=== PATIENT | female | born 1990 | race Caucasian/White ===

== ENCOUNTER → 2017-08-15 16:43 | Outpatient (CLI) | payer OTHER, SELFPAY ==
[2017-08-15 17:19] LABS: Basophils # 0.1 K/mm3 (0-0.2); Basophils % 0.5 % (0.1-2.0); Eosinophils % 0.1 % (0.1-12.0); Hematocrit 36.2 % (37.0-47.0); Hemoglobin 11.9 g/dL (12.2-16.2); Lymphocytes # 1.6 K/mm3 (0.7-4.5); Lymphocytes % 18.4 K/mm3 (10-50); Mean Corpuscular HGB Conc 32.9 g/dL (31.8-35.4); Mean Corpuscular Hemoglobin 30.3 pg (27.0-31.2); Mean Platelet Volume 8.9 fl (7.4-10.4); Monocytes # 0.5 K/mm3 (0.1-1.0); Monocytes % 5.2 % (1.7-9.3); Neutrophils # 6.7 K/mm3 (1.8-7.8); Neutrophils % 75.8 % (37.0-80.0); Platelet Count 215 K/mm3 (142-424); Red Blood Count 3.94 M/mm3 (4.20-5.40); Red Cell Distribution Width 13.2 % (11.5-17.5); White Blood Count 8.8 K/mm3 (4.8-10.8)
[2017-08-15 20:25] LABS: Amphetamine/Metha Screen,Urine Negative ng/mL (<1000); Barbiturates Screen,Urine Negative ng/mL (<200); Benzodiazepines Screen,Urine Negative ng/mL (200); Cannabinoid Screen,Urine Negative ng/mL (<50); Cocaine Screen,Urine Negative ng/g (<300); Methadone Screen,Urine Negative ng/mL (<300); Opiate Screen,Urine Negative ng/mL (<300); Phencyclidine Screen,Urine Negative ng/mL (<25)
[2017-08-17 13:20] LABS: HIV Screen 4th Generation wRfx Non Reactive (Non Reactive); Hepatitis B Surface Antigen Negative (Negative); Rubella Antibodies, IgG 7.34 index (Immune >0.99)
== END ==
PROVIDERS: Family Provider Pediatrics; PCP Obstetrics & Gynecology; Visit Provider Obstetrics & Gynecology
DX: Z36.89 Encounter for other specified antenatal screening (principal); N94.89 Other specified conditions associated with female genital organs and menstrual cycle; Z34.90 Encounter for supervision of normal pregnancy, unspecified, unspecified trimester; Z04.8 Encounter for examination and observation for other specified reasons
CPT/HCPCS: 36415; 80305; 85025; 86703; 86762; 86850; 87340; G0432

== ENCOUNTER 2018-12-06 16:39 | Emergency (ER) | payer BC, SELFPAY ==
--- NOTE | 2018-12-06 16:57 | XR_ITS ---
XR knee LT 3V HISTORY: ITS.REASON: pain ORDERING PHYSICIAN: Lili Groves APRN PATIENT AGE: 28 years COMPARISON: None FINDINGS: No fracture or dislocation. No lytic or blastic change. Normal mineralization. No significant arthritic changes evident. No other significant findings IMPRESSION: Negative Knee
[2018-12-06 16:58] VITALS: BP 131/78; PULSE 91; RESP 20; TEMP 36.8; O2SAT 99; BMI 77.0
--- NOTE | 2018-12-06 17:34 | HMH.EDUTC ---
[facility] [place] Clinical Impression: Knee pain, acute Qualifiers: Laterality: left Qualified Code(s): M25.562 - Pain in left knee Disposition: Home, Self-Care Condition on Discharge: Good Instructions: How To Perform RICE (Rest, Ice, Compress, Elevate), DI for Knee Pain, How to Use Crutches, How to Use a Knee Immobilizer Additional Instructions: *RICE, Rest the extremity, Ice 15-20 minutes 3-4 times daily, Compress- wear the jose martin wrap as discussed as much as possible to help reduce swelling and pain, Elevate the extremity when at rest *Jose Martin wrap/ knee is for support and help control swelling, use it except in the shower. Be sure that is not to tight but not to loose either *Elevate when resting *Ibuprofen every 6-8 hours as needed for pain an inflammation. If need something more can take Tylenol in between doses of Ibuprofen to help Immediately follow up with your family doctor for new or worsening of symptoms, or no noticeable improvement over the next 3-5 days Follow up with Orthopedics for further evaluation and any worsening of knee pain Return if needed Straight to ER if any life threatening symptoms Prescriptions: Ibuprofen [Ibuprofen 800mg Tablet] 800 mg PO Q8HP PRN #15 tab PRN Reason: Moderate Pain Referrals: Deloris Garcia APRN [Primary Care Provider] - As needed Sharon Calvo MD [Physician] - Joseph Nolasco MD [Staff Physician] - Forms: Work/School Release Medical Decision Making - Dewey Inquiry Pt receiving controlled substance: No Dewey was queried for this patient: No Vital Signs: 12/06/18 16:58 Temperature 98.3 F Temperature Source Tympanic Pulse Rate [Radial] 91 H Respiratory Rate 20 Blood Pressure [Right Arm] 131/78 Blood Pressure Mean [Right Arm] 95 02 Sat by Pulse Oximetry 99 Oxygen Delivery Method Room Air Orders (Tests/Meds): ORDERS Category Date Time Status XR knee LT 3V Stat Exams 12/06/18 16:57 Taken - Radiology Data #1 Image(s): Knee Image Reviewed: Yes I have reviewed radiologist's interpretation Preliminary Findings: No Fracture Seen IMPRESSION: Negative Knee [facility] [place] - General Stated complaint: Left knee pain Time Seen by Provider: 12/06/18 17:42 Mode of Arrival: Ambulatory Source of Information: Patient Limitations: No Limitations Description of Symptoms (Recalled from Triage Doc. 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 denies new injury - Related Data Home Medications Medication Instructions Recorded Confirmed buspirone 5 mg tablet 5 mg PO QHS tab 08/15/17 levothyroxine 75 mcg capsule 150 mcg PO DAILY cap 08/15/17 1 tab PO DAILY tab 08/15/17 vitamin,calcium,enfdyhvg-vptr-vrzag acid tablet Previous Rx's Medication Instructions Recorded Ibuprofen [Ibuprofen 800mg 800 mg PO Q8HP PRN #15 tab 12/06/18 Tablet] Allergies Allergy/AdvReac Type Severity Reaction Status Date / Time No Known Allergies Allergy Verified 09/20/17 14:46 - Worker's Comp Is this a Worker's Comp case?: No Is this an H Worker's Comp?: No Is this a Mildred Worker's Comp?: No [facility] History - Hepatitis A Screen Drug use history?: No High risk sexual behaviors?: No History of sexually transmitted infection?: No Currently employed?: No Childcare worker?: No Do you have indoor plumbing?: Yes
--- NOTE | 2018-12-06 17:42 | ED_ITS ---
[facility] [place] Dis[place] Clinical Impression: Knee pain, acute Qualifiers: Laterality: left Qualified Code(s): M25.562 - Pain in left knee Disposition: Home, Self-Care Condition on Discharge: Good Instructions: How To Perform RICE (Rest, Ice, Compress, Elevate), DI for Knee Pain, How to Use Crutches, How to Use a Knee Immobilizer Additional Instructions: *RICE, Rest the extremity, Ice 15-20 minutes 3-4 times daily, Compress- wear the jose martin wrap as discussed as much as possible to help reduce swelling and pain, Elevate the extremity when at rest *Jose Martin wrap/ knee is for support and help control swelling, use it except in the shower. Be sure that is not to tight but not to loose either *Elevate when resting *Ibuprofen every 6-8 hours as needed for pain an inflammation. If need something more can take Tylenol in between doses of Ibuprofen to help Immediately follow up with your family doctor for new or worsening of symptoms, or no noticeable improvement over the next 3-5 days Follow up with Orthopedics for further evaluation and any worsening of knee pain Return if needed Straight to ER if any life threatening symptoms Prescriptions: Ibuprofen [Ibuprofen 800mg Tablet] 800 mg PO Q8HP PRN #15 tab PRN Reason: Moderate Pain Referrals: Deloris Garcia APRN [Primary Care Provider] - As needed Sharon Calvo MD [Physician] - Joseph Nolasco MD [Staff Physician] - Forms: Work/School Release Medical Decision Making - Dewey Inquiry Pt receiving controlled substance: No Dewey was queried for this patient: No Vital Signs: 12/06/18 16:58 Temperature 98.3 F Temperature Source Tympanic Pulse Rate [Radial] 91 H Respiratory Rate 20 Blood Pressure [Right Arm] 131/78 Blood Pressure Mean [Right Arm] 95 02 Sat by Pulse Oximetry 99 Oxygen Delivery Method Room Air Orders (Tests/Meds): ORDERS Category Date Time Status XR knee LT 3V Stat Exams 12/06/18 16:57 Taken - Radiology Data #1 Image(s): Knee Image Reviewed: Yes I have reviewed radiologist's interpretation Preliminary Findings: No Fracture Seen IMPRESSION: Negative Knee [facility] [place] HPI - General Stated complaint: Left knee pain Time Seen by Provider: 12/06/18 17:42 Mode of Arrival: Ambulatory Source of Information: Patient Limitations: No Limitations Description of Symptoms (Recalled from Triage Doc. 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 denies new injury - Related Data Home Medications Medication Instructions Recorded Confirmed buspirone 5 mg tablet 5 mg PO QHS tab 08/15/17 levothyroxine 75 mcg capsule 150 mcg PO DAILY cap 08/15/17 1 tab PO DAILY tab 08/15/17 vitamin,calcium,minera
[2018-12-06 18:15] VITALS: BP 131/78; PULSE 91; RESP 20; TEMP 36.8; O2SAT 99
== END 2018-12-06 18:17 | disposition home or self-care (01) ==
PROVIDERS: Emergency Provider Nurse Practitioner; PCP Nurse Practitioner Family
DX: M25.562 Pain in left knee (principal); E05.00 Thyrotoxicosis with diffuse goiter without thyrotoxic crisis or storm
CPT/HCPCS: 29505; 73562; 99202

== ENCOUNTER → 2018-12-12 16:42 | Outpatient (CLI) | payer BC, SELFPAY ==
[2018-12-12 18:18] LABS: Free T4 (Free Thyroxine) 0.76 ng/dl (0.76-1.46); Thyroid Stimulating Hormone 51.75 uIU/ml (0.358-3.740)
== END ==
PROVIDERS: Visit Provider Nurse Practitioner Family
DX: R94.6 Abnormal results of thyroid function studies (principal)
CPT/HCPCS: 36415; 84439; 84443

== ENCOUNTER 2019-01-04 17:00 | Outpatient (RCR) | payer BC, SELFPAY ==
--- NOTE | 2018-12-26 17:25 | HMH.PTOPEV ---
PT Outpatient Evaluation Rehab PT Outpatient Evaluation Start: 12/26/18 17:14 Freq: Status: Active Protocol: Document 12/26/18 17:14 NEO (Rec: 12/26/18 17:24 SURINDERPAGEJOAQUIM [id number]) Electronically Signed By Farooq Whatley, PT 12/26/18 17:14 Outpatient Therapy Subjective History Subjective History Patient is a 28 year old female presenting to outpatient PT with reports of B shoulder pain of insidious onset that has progressively gotten worse since 07/2018. No recent diagnostics to report. Pt reports overall decreased symptoms since starting daily ibuprofen. Comorbidities include hypothyroidism, anxiety and depression. Chief Complaint Pain Symptom Type Ache Symptoms Relieved By Rest/Positioning,OTC Meds Symptoms Aggravated By Physical Activity,Lifting Prior Functional Limitations None Current Functional Limitations Reaching,Lifting,Housework, Sleeping,Recreation Activity Symptom Description Constant but Variable Level of pain today (0-10) 2 Pain scale - at its best (0-10) 1 Pain scale - at its worst (0-10) 6 Shoulder/Elbow Eval Shoulder Objective Measurements Palpation Tenderness tenderness shoulder exam standard bilateral tenderness over the bicipital tendon bilateral shoulder exam standard tenderness over the SA bursa shoulder bilateral exam standard Shoulder Palpation Findings Tenderness Shoulder Palpation Overall Comment 2/4 Posture Shoulder Posture Sitting Position (L) Forward,(R) Forward Shoulder Posture Standing Position (L) Forward,(R) Forward Scapula Posture Sitting Position (L) Protracted,(R) Protracted Scapular Posture Standing Position (L) Protracted,(R) Protracted Flexibilty Deficits Latissmus Dorsi Muscle Length (R) Mild Tightness,(L) Mild Tightness Pectoralis Minor Muscle Length (R) Moderate Tightness,(L) Moderate Tightness Levaetor Scapulae Muscle Length (R) Mild Tightness,(L) Mild Tightness Shoulder ROM Bilateral pain with active ROM shoulder exam bilateral standard full ROM shoulder exam standard bilateral Shoulder MMT Shoulder Flexion Strength Grade 4 Good Shoulder External Rotation Strength 4- Good- Grade Shoulder Special Tests impingement sign present shoulder exam bilateral standard Shoulder Drop Arm Test Negative Left,Negative Right Shoulder Cr
== END 2019-01-04 17:05 | disposition home or self-care (01) ==
LOC: PT 17:00
PROVIDERS: Visit Provider Nurse Practitioner Family
DX: M25.511 Pain in right shoulder (principal)
CPT/HCPCS: 97163

== ENCOUNTER → 2019-01-19 13:33 | Outpatient (CLI) | payer BC, SELFPAY ==
--- NOTE | 2019-01-19 13:48 | XR_ITS ---
XR knee LT 4V HISTORY: ITS.REASON: knee pain ORDERING PHYSICIAN: Sharon Calvo MD PATIENT AGE: 28 years COMPARISON: None FINDINGS: No fracture or dislocation. No lytic or blastic change. Normal mineralization. No significant arthritic changes evident. No other significant findings IMPRESSION: Negative Knee
== END ==
PROVIDERS: PCP Nurse Practitioner Family; Visit Provider Orthopaedic Surgery
DX: M25.562 Pain in left knee (principal)
CPT/HCPCS: 73564

== ENCOUNTER → 2019-01-26 15:51 | Outpatient (CLI) | payer BC, SELFPAY ==
--- NOTE | 2019-01-26 16:01 | MR_ITS ---
MR knee LT wo con HISTORY: Left knee pain, posterior knee pain, injury with pain ITS.REASON: PCL injury ORDERING PHYSICIAN: Sharon Calvo MD PATIENT AGE: 28 years Comparison: 01/19/2019 TECHNIQUE: Standard multiplanar multiecho sequences are performed without contrast. FINDINGS: The cruciate ligaments appear intact. There is some thinning of the fibers of the anterior cruciate ligament which could represent sprain or old injury. The posterior cruciate ligament has an unremarkable appearance. The collateral ligaments, patellar tendon, and quadriceps tendon have an unremarkable appearance. Patellar cartilage is well preserved. No meniscal tear.. No fracture or dislocation. No bone bruise. A small knee joint effusion. IMPRESSION: 1. There is mild thinning of the ACL nonspecific but could be related to sprain or partial tear 2. Posterior cruciate ligament and menisci have an unremarkable appearance. 3. Small knee joint effusion
== END ==
PROVIDERS: PCP Nurse Practitioner Family; Visit Provider Orthopaedic Surgery
DX: M25.562 Pain in left knee (principal); G89.29 Other chronic pain
CPT/HCPCS: 73721

== ENCOUNTER → 2019-08-23 17:01 | Outpatient (CLI) | payer BC, SELFPAY ==
[2019-08-23 19:05] LABS: Free T4 (Free Thyroxine) 0.71 ng/dl (0.78-2.19)
[2019-08-25 20:43] LABS: Prolactin 9.8 ng/mL (4.8-23.3)
== END ==
PROVIDERS: Visit Provider Nurse Practitioner Family
DX: E03.9 Hypothyroidism, unspecified (principal)
CPT/HCPCS: 36415; 84146; 84439; 84443

== ENCOUNTER → 2020-08-27 14:45 | Outpatient (CLI) | payer BC, SELFPAY ==
[2020-08-27 16:02] LABS: Triiodothryronine (T3) Uptake 29 % (23.5-40.5)
[2020-08-27 16:03] LABS: Free Thyroxine Index 3.2 ug/dL (5.93-13.13); T4 (Thyroxine) 11.2 ug/dl (5.53-11.0)
[2020-08-27 16:17] LABS: Thyroid Stimulating Hormone 4.41 uIU/mL (0.465-4.68)
== END ==
PROVIDERS: Visit Provider Internal Medicine Adolescent Medicine
DX: R94.6 Abnormal results of thyroid function studies (principal)
CPT/HCPCS: 36415; 84436; 84443; 84479

== ENCOUNTER → 2021-07-08 09:03 | Outpatient (CLI) | payer BC, SELFPAY | PROVIDERS: Visit Provider Nurse Practitioner | DX: U07.1 COVID-19 (principal) | CPT/HCPCS: C9803; U0003; U0005 ==

== ENCOUNTER 2022-10-11 20:12 | Emergency (ER) | payer BC, SELFPAY ==
[2022-10-11 20:16] VITALS: BP 124/76; O2SAT 98
[2022-10-11 20:18] VITALS: BP 124/76; PULSE 94; RESP 17; TEMP 36.7; O2SAT 98; BMI 33.0
--- NOTE | 2022-10-11 20:26 | XR_ITS ---
PROCEDURE INFORMATION: Exam: XR Right Hip Exam date and time: 10/11/2022 8:36 PM Age: 32 years old Clinical indication: Patient HX: Right hip pain, difficulty to bear weight on leg. Started tonight after jumping during soccer practice; Additional info: Back pain TECHNIQUE: Imaging protocol: Radiologic exam of the right hip. Views: 2 or 3 views hip with pelvis when performed. COMPARISON: No relevant prior studies available. FINDINGS: Bones/joints: No acute pelvic fracture. Normal alignment at the hips, no dislocation. Bilateral sacroiliitis with periarticular spurs greater on the right. There is prominent periarticular sclerosis, right greater than left, predominantly in the iliac bones suggesting osteitis condensans illi. No focal lytic lesions. No significant arthritic deformities at the hips. Soft tissues: No acute findings in the soft tissues. IMPRESSION: 1. Sacroiliitis with osteitis condensans ilii, greater on the right. 2. No acute fracture or dislocation. 3. Unremarkable appearance of the right hip joint.
--- NOTE | 2022-10-11 20:26 | XR_ITS ---
PROCEDURE INFORMATION: Exam: XR Lumbosacral Spine Exam date and time: 10/11/2022 8:38 PM Age: 32 years old Clinical indication: Low back pain; Patient HX: Pain started tonight after jumping during soccer practice; Additional info: Right hip pain/possible sciatica TECHNIQUE: Imaging protocol: Radiologic exam of the lumbosacral spine. Views: 2 or 3 views. COMPARISON: CR XR HIP RT 2-3V W/PELVIS 10/11/2022 8:36 PM FINDINGS: Bones/joints: A normal count of 5 non rib-bearing lumbar type vertebrae will be assumed, with a transitional T12 segment with hypoplastic ribs; no previous thoracic spine imaging studies are available for comparison, for accurate numbering. There is grade 1 anterolisthesis at the L5-S1 level, appearance suspicious for underlying pars defects, which would be more accurately evaluated with oblique views. Alignment is otherwise within normal limits. There is straightening of lumbar lordosis suggesting muscle spasm. Disc spaces are well preserved. No significant spondylosis. There is prominent bilateral sacroiliitis or osteitis condensans ilii, with prominent periarticular sclerosis predominantly in the iliac bones, greater on the right. Small bilateral inferior sacroiliac spurs. Soft tissues: No acute findings in the soft tissues. IMPRESSION: 1. Grade 1 anterolisthesis L5-S1, with likely underlying spondylolysis, suboptimally evaluated without oblique views. 2. Lumbar muscle spasm. 3. Bilateral sacroiliitis, and bilateral osteitis condensans ilii, greater on the right.
--- NOTE | 2022-10-11 21:21 | HMH.EDGENADL ---
Discharge Plan Disposition Patient Disposition: Home, Self-Care Prescriptions Prescriptions: New prednisone [prednisone] 20 mg tablet 20 mg PO BID Qty: 10 0RF No Action levothyroxine 175 mcg tablet PO Label Comments: TAKE 1 TABLET BY MOUTH ONCE DAILY buspirone 5 mg tablet 5 mg PO BID Qty: 60 2RF lorazepam [Ativan] 0.5 mg tablet 0.5 mg PO BID PRN (Reason: anxiety) Qty: 30 0RF dextroamphetamine-amphetamine [Adderall] 10 mg tablet 10 mg PO BID Qty: 60 0RF Rx Instructions: administer doses at least 4-6 hours apart venlafaxine 37.5 mg capsule,extended release 24hr See Rx Instructions .ROUTE .COMPLEX Qty: 90 0RF Dose Instruction: Take 1 capsule by mouth once daily Rx Instructions: Take 1 capsule by mouth once daily Mydayis 12.5 mg capsule, ER triphasic 24 hr 12.5 mg PO DAILY Qty: 30 0RF Wegovy 1.7 mg/0.75 mL pen injector 1.7 mg SQ WEEKLY Qty: 3 0RF Rx Instructions: administer weeks 13 through 16 of therapy Referrals Follow up/Referrals: Chioma Zuniga PA [Primary Care Provider] - See instructions Clinical Impressions Clinical Impression: Sacroiliitis, Osteitis condensans ilii Instructions Patient Instructions: Sacroiliac Joint Pain Discharge ED Provider: Kev (ED)Alex General Adult HPI General Chief complaint: PAIN Stated complaint: Right hip pain Time Seen by Provider: 10/11/22 20:30 Mode of Arrival: Family Vehicle Source of Information: Patient, Spouse and Medical Record Limitations: No Limitations Description of Symptoms (Recalled from ER Triage Doc. 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 NO DEFINITIVE INJURY, HOWEVER SHE SAID THAT IS THE LAST THING SHE RECALLS ACTIVITY-ARENAS THAT MAY HAVE OCCURRED. VSS. AFEBRILE. NO URINARY ISSUES. NO DIARRHEA. NO CONSTIPATION. LMP UNK-HAS NEXPLANON. History of Present Illness HPI narrative: acute rt hip pain after jumping tonight - worse with wt bearing and mov Onset (ago): hour(s) Location: lower extremity Severity: moderate Associated symptoms: denies other symptoms Related Data Home Medications Medication Instructions Recorded Confirmed levothyroxine 175 mcg tablet PO 08/05/19 07/05/22 Previous Rx's Medication Instructions Recorded buspirone 5 mg tablet 5 mg PO BID #60 tabs 05/18/22 lorazepam 0.5 mg tablet (Ativan) 0.5 mg PO BID PRN anxiety #30 tabs 05/18/22 dextroamphetamine-amphetamine 10 10 mg PO BID #60 tabs 08/10/22 mg tablet (Adderall) venlafaxine 37.5 mg See Rx Instructions .Route 09/15/22 capsule,extended release 24 hr .COMPLEX #90 caps dextroamphetamine-amphetamine ER 12.5 mg PO DAILY #30 ea 09/24/22 12.5 mg capsule, 3 bead, ext rel 24hr (Mydayis) semaglutide (weight loss) 1.7 1.7 mg (0.75 mL) SQ WEEKLY #3 mL 10/04/22 mg/0.75 mL subcutaneous pen injector (Wegovy) prednisone 20 mg tablet 20 mg PO BID #10 tabs 10/11/22 Allergies Allergy/AdvReac Type Severity Reaction Status Date / Time No Known Allergies Allergy Verified 05/18/22 13:22 [facility] Disclaimer: The information contained in this section may have been updated after the patient was seen, as this information can be updated by other users. Medical History (Updated 10/11/22 @ 21:55 by Alex Angulo (ED)MD) Anxiety Depression Surgical History delivery delivered H/O radioactive iodine thyroid ablation Social History Smoking Status: Never smoker second hand exposure: No alcohol intake: never substance use type: denies use current occupational status: employed Travel in the last 8 weeks: None household members: family housing: apartment ROS Obtained: Yes All systems reviewed & no additional complaints except as docu
[2022-10-11 21:57] VITALS: BP 119/81; PULSE 90; RESP 16; TEMP 36.7; O2SAT 98
== END 2022-10-11 21:59 | disposition home or self-care (01) ==
PROVIDERS: Emergency Provider Emergency Medicine; PCP Physician Assistant
DX: M46.1 Sacroiliitis, not elsewhere classified (principal); M85.39 Osteitis condensans, multiple sites
CPT/HCPCS: 72100; 73502; 99283

== ENCOUNTER → 2022-10-27 13:28 | Outpatient (CLI) | payer BC, SELFPAY ==
--- NOTE | 2022-10-27 13:35 | MR_ITS ---
FINAL REPORT TECHNIQUE: Multiplanar MR without contrast CLINICAL HISTORY: abnormal lumbar xray FINDINGS: Sagittal images show normal vertebral height. There is minimal anterolisthesis of L5 on S1 with probable pars defects of L5. Marrow signal pattern is unremarkable. L1-2: Unremarkable L2-3: Unremarkable L3-4: Moderate right paracentral disc protrusion compressing the right L4 nerve root and right side of the thecal sac. L4-5: Small midline disc protrusion and annular tear. No nerve root compression. L5-S1: Minimal annular disc bulge. Tiny central annular tear. IMPRESSION: Significant right sided disc protrusion at L3-4 with compression of the neural structures. Minimal anterolisthesis of L5 on S1, likely related to underlying L5 pars defect. Reviewed, Interpreted and Dictated by Darek Santana MD Transcribed by Chyna Mcclelland Authenticated and [facility]
--- NOTE | 2022-10-27 13:35 | MR_ITS ---
FINAL REPORT TECHNIQUE: Multiplanar MR without contrast CLINICAL HISTORY: right hip pain AFTER JUMPING FINDINGS: The marrow signal pattern is normal. There is no evidence of avascular necrosis. No osteochondral defects are present. Physiologic joint effusion is seen. Labrum shows a normal MR appearance. There is very minimal right-sided trochanteric bursitis. Incidental note is made of left-sided trochanteric bursitis, worse than the right. IMPRESSION: Minimal trochanteric bursitis. Reviewed, Interpreted and Dictated by Darek Santana MD Transcribed by Chyna Mcclelland Authenticated and [facility]
== END ==
PROVIDERS: PCP Physician Assistant; Visit Provider Physician Assistant
DX: M54.50 Low back pain, unspecified (principal); M25.551 Pain in right hip
CPT/HCPCS: 72148; 73721; 76376

== ENCOUNTER 2022-12-14 15:00 | Outpatient (RCR) | payer BC, SELFPAY ==
--- NOTE | 2022-11-18 09:46 | HMH.PTOPEV ---
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 Pt reports when she landed she had a muscle spasms from the right side of the low back to the right hip/ groin and was unable to walk/ stand for 1-2 days. Pt denies any numbness/tingling, distal symptoms, or bowel/bladder dysfunction since the injury. Pt reports she went to the ER that night and had xrays which came back negative for fractures. Pt reports she was given an oral steroid and Tylenol which helped with pain . Pt reports a history of chronic low back pain that has hurt since she played soccer in high [employer]. Pt reports she has a flare up of LBP once a month that last about 2 days and she just continues with normal activity until it resolves on its own. Pt reports hip and low back pain have improved since the initial injury but she still has intermittent spasms of the right low back to the right groin area and intermittent sharp twinges of pain in the same location. Pt also reports intermittent localized pain over the right greater trochanter. Pt is unable to identify what activities worsen pain. Pt reports she does have some difficulty lifting her 1 and 4 y/o children and going up stairs
== END 2022-12-14 15:05 | disposition home or self-care (01) ==
LOC: PT 15:00
PROVIDERS: PCP Physician Assistant; Visit Provider Physician Assistant
DX: M70.71 Other bursitis of hip, right hip (principal)
CPT/HCPCS: 97033; 97110; 97112; 97163; 97530

== ENCOUNTER → 2023-01-17 09:45 | Outpatient (CLI) | payer BC, SELFPAY | PROVIDERS: PCP Student in an Organized Health Care Education/Training Program; Visit Provider Student in an Organized Health Care Education/Training Program | DX: N39.0 Urinary tract infection, site not specified (principal); B96.29 Other Escherichia coli [E. coli] as the cause of diseases classified elsewhere | CPT/HCPCS: 87086; 87088; 87186 ==

== ENCOUNTER → 2023-05-30 23:28 | Outpatient (CLI) | payer BC, SELFPAY ==
[2023-05-30 18:32] LABS: Amphetamine/Metha Screen,Urine Positive ng/ml (<1000); Barbiturates Screen,Urine Negative ng/ml (<200)
[2023-05-30 18:33] LABS: Benzodiazepines Screen,Urine Negative ng/ml (<200); Cannabinoid Screen,Urine Negative ng/ml (<50)
[2023-05-30 18:34] LABS: Cocaine Screen,Urine Negative ng/ml (<300)
[2023-05-30 18:35] LABS: Methadone Screen,Urine Negative ng/ml (<300); Opiate Screen,Urine Negative ng/ml (<300)
[2023-05-30 18:36] LABS: Phencyclidine Screen,Urine Negative ng/ml (<25)
== END ==
PROVIDERS: PCP Physician Assistant; Visit Provider Physician Assistant
DX: F90.9 Attention-deficit hyperactivity disorder, unspecified type (principal)
CPT/HCPCS: 80305

== ENCOUNTER 2023-11-16 18:21 | Outpatient (CLI) | payer BC, SELFPAY ==
[2023-11-16 18:41] LABS: Basophils # 0.1 K/mm3 (0-0.2); Basophils % 1.1 % (0.1-2.0); Hematocrit 40.4 % (37.0-47.0); Hemoglobin 13.5 g/dL (12.2-16.2); Lymphocytes # 1.2 K/mm3 (0.7-4.5); Mean Corpuscular HGB Conc 33.3 g/dL (31.8-35.4); Mean Corpuscular Hemoglobin 30.3 pg (27.0-31.2); Mean Corpuscular Volume 91.2 fl (81-99); Mean Platelet Volume 9.7 fl (7.4-10.4); Monocytes # 0.2 K/mm3 (0.1-1.0); Monocytes % 4.4 % (1.7-9.3); Neutrophils # 3.8 K/mm3 (1.8-7.8); Neutrophils % 71.6 % (37.0-80.0); Platelet Count 273 K/mm3 (142-424); Red Blood Count 4.43 M/mm3 (4.20-5.40); Red Cell Distribution Width 14.5 % (11.5-17.5); White Blood Count 5.3 K/mm3 (4.8-10.8)
[2023-11-16 19:02] LABS: Alanine Aminotransferase 38 U/L (12-78); Albumin Level 4.3 g/dl (3.5-5.0); Albumin/Globulin Ratio 1.3 (1.1-1.8); Alkaline Phosphatase 65 U/L (38-126); Anion Gap 15.1 mEq/L (5-15); Aspartate Amino Transferase 38 U/L (14-36); Bilirubin,Total 0.5 mg/dl (0.2-1.3); Blood Urea Nitrogen 10 mg/dl (7-17); Calcium 9.5 mg/dl (8.4-10.2); Carbon Dioxide 25 mmol/L (22.0-30.0); Chloride 101 mmol/L (98-107); Chol/HDL Ratio 5.6 (1-3.5); Cholesterol 224 mg/dl (140-200); Estimated Glomerular Filt Rate 84 ml/min (>60); GFR (African American) 101 ML/MIN (>60); Globulin 3.2 g/dL (1.3-3.2); Glucose 139 mg/dl (74-100); HDL Cholesterol 40 mg/dl (40-60); Potassium 4.1 mmoL/L (3.5-5.1); Sodium 137 mmol/L (136-145); Total Protein,Serum 7.5 g/dl (6.3-8.2); Triglycerides 159 mg/dl (30-150); VLDL Cholesterol 32 mg/dL (0-40)
[2023-11-16 19:13] LABS: Direct LDL Cholesterol 146.69 mg/dL (100-129)
[2023-11-16 19:24] LABS: 25-OH Vitamin D, Total 26.5 ng/mL (30-100)
[2023-11-16 19:26] LABS: T4 (Thyroxine) 10.4 ug/dl (5.53-11.0)
[2023-11-16 19:39] LABS: Thyroid Stimulating Hormone 1.32 uIU/mL (0.465-4.68)
[2023-11-16 20:16] LABS: Vitamin B12 271 pg/mL (239-931)
[2023-11-16 20:19] LABS: Folate 8.52 ng/mL
== END 2023-11-16 23:59 | disposition home or self-care (01) ==
LOC: LAB.DROPOF 18:21
PROVIDERS: PCP Nurse Practitioner Family; Visit Provider Nurse Practitioner Family
DX: E03.9 Hypothyroidism, unspecified (principal); R53.83 Other fatigue; E55.9 Vitamin D deficiency, unspecified; Z79.899 Other long term (current) drug therapy
CPT/HCPCS: 80053; 80061; 82306; 82607; 82746; 84436; 84443; 85025

== ENCOUNTER 2023-12-26 11:31 | Outpatient (CLI) | payer BC, SELFPAY | END 2023-12-26 23:59 | disposition home or self-care (01) | LOC: LAB.DROPOF 12-27 11:32 | PROVIDERS: PCP Student in an Organized Health Care Education/Training Program; Visit Provider Student in an Organized Health Care Education/Training Program | DX: N39.0 Urinary tract infection, site not specified (principal) | CPT/HCPCS: 87086 ==

== ENCOUNTER 2023-12-28 14:59 | Outpatient (CLI) | payer BC, SELFPAY | END 2023-12-28 23:59 | disposition home or self-care (01) | LOC: LAB 15:00 | PROVIDERS: PCP Physician Assistant; Visit Provider Student in an Organized Health Care Education/Training Program | DX: N39.0 Urinary tract infection, site not specified (principal) | CPT/HCPCS: 87086 ==

== ENCOUNTER 2024-01-13 08:46 | Outpatient (CLI) | payer BC, SELFPAY ==
[2024-01-13 17:49] LABS: HCG Qualitative, Serum Negative (Negative)
[2024-01-13 17:50] LABS: Alanine Aminotransferase 27 U/L (12-78); Albumin Level 4.2 g/dl (3.5-5.0); Albumin/Globulin Ratio 1.3 (1.1-1.8); Alkaline Phosphatase 63 U/L (38-126); Anion Gap 11.7 mEq/L (5-15); Aspartate Amino Transferase 29 U/L (14-36); Bilirubin,Total 0.5 mg/dl (0.2-1.3); Blood Urea Nitrogen 9 mg/dl (7-17); Calcium 9.2 mg/dl (8.4-10.2); Carbon Dioxide 23 mmol/L (22.0-30.0); Chloride 106 mmol/L (98-107); Chol/HDL Ratio 4.8 (1-3.5); Cholesterol 216 mg/dl (140-200); Estimated Glomerular Filt Rate 98 ml/min (>60); GFR (African American) 118 ML/MIN (>60); Globulin 3.2 g/dL (1.3-3.2); Glucose 95 mg/dl (74-100); HDL Cholesterol 45 mg/dl (40-60); Potassium 3.7 mmoL/L (3.5-5.1); Sodium 137 mmol/L (136-145); Total Protein,Serum 7.4 g/dl (6.3-8.2); Triglycerides 135 mg/dl (30-150); VLDL Cholesterol 27 mg/dL (0-40)
[2024-01-13 17:57] LABS: Basophils % 0.2 % (0.1-2.0); Eosinophils % 0.1 % (0.1-12.0); Hematocrit 41.2 % (37.0-47.0); Hemoglobin 13.6 g/dL (12.2-16.2); Lymphocytes # 1.5 K/mm3 (0.7-4.5); Lymphocytes % 28.1 % (10-50); Mean Corpuscular HGB Conc 32.9 g/dL (31.8-35.4); Mean Corpuscular Hemoglobin 31.4 pg (27.0-31.2); Mean Corpuscular Volume 95.3 fl (81-99); Mean Platelet Volume 9.5 fl (7.4-10.4); Monocytes # 0.3 K/mm3 (0.1-1.0); Monocytes % 5.7 % (1.7-9.3); Neutrophils # 3.5 K/mm3 (1.8-7.8); Neutrophils % 65.9 % (37.0-80.0); Platelet Count 209 K/mm3 (142-424); Red Blood Count 4.32 M/mm3 (4.20-5.40); Red Cell Distribution Width 14.7 % (11.5-17.5); White Blood Count 5.3 K/mm3 (4.8-10.8)
[2024-01-13 18:01] LABS: Direct LDL Cholesterol 136.26 mg/dL (100-129)
[2024-01-13 18:07] LABS: 25-OH Vitamin D, Total 58.6 ng/mL (30-100)
[2024-01-13 18:10] LABS: Free Thyroxine Index 4.3 ug/dL (5.93-13.13); T4 (Thyroxine) 11.7 ug/dl (5.53-11.0); Triiodothryronine (T3) Uptake 37 % (23.5-40.5)
[2024-01-13 18:24] LABS: Thyroid Stimulating Hormone 0.06 uIU/mL (0.465-4.68)
[2024-01-13 19:13] LABS: Hemoglobin A1C 4.8 % (4.0-6.0)
== END 2024-01-13 23:59 | disposition home or self-care (01) ==
LOC: LAB.DROPOF 01-16 08:46
PROVIDERS: PCP Physician Assistant; Visit Provider Physician Assistant
DX: E03.9 Hypothyroidism, unspecified (principal); R53.83 Other fatigue; Z68.34 Body mass index [BMI] 34.0-34.9, adult; E66.9 Obesity, unspecified
CPT/HCPCS: 80050; 80053; 80061; 82306; 83036; 84436; 84443; 84479; 84703; 85025

== ENCOUNTER 2024-01-28 15:53 | Emergency (ER) | payer BC, SELFPAY ==
[2024-01-28 16:05] VITALS: BP 96/59; PULSE 80; RESP 17; TEMP 36.7; O2SAT 98; BMI 34.4
[2024-01-28 16:24] LABS: UTC Strep Screen (Rapid) Positive (Negative)
--- NOTE | 2024-01-28 16:25 | ED_ITS ---
Discharge Plan Disposition Patient Disposition: Home, Self-Care Condition: Good Prescriptions Prescriptions: New azithromycin 250 mg tablet 250 mg PO DIRECTED Qty: 6 0RF Rx Instructions: Take two (2) tablets on day #1, then one (1) tablet day #2 thru #5 No Action Vraylar 1.5 mg capsule See Rx Instructions .ROUTE .COMPLEX Qty: 90 0RF Dose Instruction: Take 1 capsule by mouth once daily Rx Instructions: Take 1 capsule by mouth once daily venlafaxine 75 mg capsule,extended release 24hr See Rx Instructions .ROUTE .COMPLEX Qty: 90 3RF Dose Instruction: Take 1 capsule by mouth once daily Rx Instructions: Take 1 capsule by mouth once daily lorazepam 0.5 mg tablet 0.5 mg PO BID PRN (Reason: anxiety) Qty: 30 0RF levothyroxine 137 mcg capsule 137 mcg PO DAILY Qty: 30 2RF dextroamphetamine-amphetamine 25 mg capsule, ER triphasic 24 hr 25 mg PO DAILY Patient Comments: 25 mg orally daily Zepbound 12.5 mg/0.5 mL pen injector 12.5 mg SQ WEEKLY Patient Comments: INJECT 1 SYRINGE SUBCUTANEOUSLY ONCE A WEEK Referrals Follow up/Referrals: Chioma Zuniga PA [Primary Care Provider] - See instructions Activity Restrictions/Add. Instructions Additional Instructions/Restrictions: Start antibiotics today be sure to take it as ordered with the full length of time although you should start feeling better in 24-48 hours. Change toothbrush and toothpaste 24-48 hours after starting antibiotics Tylenol or Motrin as needed for fever or pain Encourage fluids, water, Gatorade, Powerade, try cold fluids, popsicles, ice cream will make it feel better You are contagious for 24 hours. Avoid kissing anyone, no eating or drinking after anyone. You are contagious. Follow-up the ER for new or worsening symptoms or no noticeable improvement over the next 24-48 hours. Follow-up with PCP this week. Clinical Impressions Clinical Impression: Strep throat Instructions Patient Instructions: DI for Strep Throat Print Language Print Language: [place] Discharge ED Provider: Moises ([facility])[place] [facility] [place] General Stated complaint: sore throat Mode of Arrival: Ambulatory Source of Information: Patient Limitations: No Limitations Time Seen by Provider: 01/28/24 16:26 Description of Symptoms (Recalled from Triage Doc. by RN): PATIENT C/O SORE THROAT AND COUGH SINCE YESTERDAY EVENING. PATIENT REPORTS EXPOSURE TO STREP HEENT Symptoms (Recalled from RN notes): Yes Resp Symptoms (Recalled from RN notes): Yes Skin Symptoms (Recalled from RN notes): No MS Symptoms (Recalled from RN notes): No Functional Status (Recalled from RN notes): WNL History of Present Illness Provider Complaint: 33 yr old female presents for sore throat and cough since last night. son has strep Related Data Home Medications ?Medication ?Instructions ?Recorded ?Confirmed dextroamphetamine-amphetamine ER 25 mg PO DAILY 01/28/24 01/28/24 25 mg capsule,3 bead,ext release 24hr tirzepatide (weight loss) 12.5 12.5 mg SQ WEEKLY 01/28/24 01/28/24 mg/0.5 mL subcutaneous pen injector (Zepbound) Previous Rx's ?Medication ?Instructions ?Recorded cariprazine 1.5 mg capsule See Rx Instructions .Route 06/24/23 (Vraylar) .COMPLEX #90 caps venlafaxine 75 mg capsule,extended See Rx Instructions .Route 12/19/23 release 24 hr .COMPLEX #90 caps lorazepam 0.5 mg tablet 0.5 mg PO BID PRN anxiety #30 tabs 01/14/24 levothyroxine 137 mcg capsule 137 mcg PO DAILY #30 caps 01/17/24 azithromycin 250 mg tablet 250 mg PO DIRECTED #6 tabs 01/28/24 Allergies Allergy/AdvReac Type Severity Reaction Status Date / Time No Known Allergies Allergy Verified 01/13/24 12:57 Worker's Comp Is this a Worker's Comp case?: No [facility] Disclaimer: The information contained in this section may have been updated after the patient was seen, as this information can be updated by other users. Medical History (Reviewed 01/28/24 @ 16:26 by Jennifer De Leon ([facility]), NURSING HOME DIRECTOR) Hypothyroidism Obesity Attention Deficit Hyperactivity Disorder (ADHD) Osteitis condensans ilii Sacroiliitis Pars defect of lumbar spine Depression Anxiety Surgical History (Reviewed 01/28/24 @ 16:27 by Jennifer De Leon ([facility]), NURSING HOME DIRECTOR) delivery delivered H/O radioactive iodine thyroid ablation Family History (Reviewed 01/28/24 @ 16:27 by Jennifer De Leon ([facility]), NURSING HOME DIRECTOR) No significant family history Social History (Reviewed 01/28/24 @ 16:27 by Jennifer De Leon ([facility]), NURSING HOME DIRECTOR) Smoking Status: Never smoker second hand exposure: No alcohol intake: never substance use type: denies use current occupational status: employed Travel in the last 8 weeks: None household members: family housing: apartment ROS Obtained: Yes All systems reviewed & no additional complaints except as documented Constitutional Constitutional: Reports system reviewed and no additional complaints, except as documented Eyes Eyes: Reports system reviewed and no additional complaints, except as documented ENT Ears, Nose, Mouth, and Throat: Reports system reviewed and no additional complaints, except as documented, Reports as per HPI and Reports sore throat Cardiovascular Cardiovascular: Reports system reviewed and no additional complaints, except as documented Respiratory Respiratory: Reports system reviewed and no additional complaints, except as documented, Reports as per HPI and Reports cough Gastrointestinal Gastrointestingal: Reports system reviewed and no additional complaints, except as documented Musculoskeletal Musculoskeletal: Reports system reviewed and no additional complaints, except as documented Integumentary/Breasts Skin/Breast: Reports system reviewed and no additional complaints, except as documented Neurologic Neurologic: Reports system reviewed and no additional complaints, except as documented Endocrine Endocrine: Reports system reviewed and no additional complaints, except as documented Hematologic/Lymphatic Henatologic/Lymphatic: Reports system reviewed and no additional complaints, except as documented Allergic/Immunologic Allergic/Immunologic: Reports system reviewed and no additional complaints, except as documented Physical Exam General General appearance: alert and in no apparent distress Head Head exam: atraumatic Eye Eye exam: Present normal appearance and PERRL ENT ENT exam: Present mucous membranes moist and TM's normal bilaterally Expanded ENT Exam Comment: pharynx red, exudates Respiratory Respiratory exam: Present normal lung sounds bilaterally Cardiovascular Cardiovascular exam: Present regular rate and normal rhythm Neurological Exam Neurological exam: Present alert and oriented X3 Skin Skin exam: Present warm and intact Medical Decision Making Medical Records Medical records reviewed: Yes I reviewed the patient's medical records. [place] Inquiry Pt receiving controlled substance: No [place] was queried for this patient: No Vital Signs: 01/28/24 16:05 Temperature 98.1 F Temperature Source Oral Pulse Rate [Left Brachial] 80 Respiratory Rate 17 Blood Pressure [Left Arm] 96/59 L Blood Pressure Mean [Left Arm] 71 Blood Pressure Source [Left Arm] Automatic Cuff Blood Pressure Position [Left Arm] Sitting 02 Sat by Pulse Oximetry 98 Oxygen Delivery Method Room Air Lab Data Lab results reviewed: Yes I reviewed the patient's lab results. Lab Results 01/28/24 16:17: Strep Scn Rapid Clinic Positive A
[2024-01-28 16:34] VITALS: BP 96/59; PULSE 80; RESP 17; TEMP 36.7; O2SAT 98
== END 2024-01-28 16:40 | disposition home or self-care (01) ==
PROVIDERS: Emergency Provider Nurse Practitioner Family; PCP Physician Assistant
DX: J02.0 Streptococcal pharyngitis (principal); R05.9 Cough, unspecified
CPT/HCPCS: 87880; 99204; 99212; G0463